=== PATIENT | male | born 1990 | race Caucasian/White ===

== ENCOUNTER 2017-05-18 14:03 | Emergency (ER) | payer OTHER ==
[~2017-05-18] VITALS: Ht 182.9 cm; Wt 118.0 kg
[2017-05-18 14:10] VITALS: BP 156/118
== END 2017-05-18 15:33 | disposition home or self-care (01) ==
LOC: ER 14:04
DX: S92.324A Nondisplaced fracture of second metatarsal bone, right foot, initial encounter for closed fracture (principal); W17.89XA Other fall from one level to another, initial encounter; Y93.39 Activity, other involving climbing, rappelling and jumping off; Y92.89 Other specified places as the place of occurrence of the external cause; Y99.8 Other external cause status
CPT/HCPCS: 29515; 73630; 99284

== ENCOUNTER 2022-02-18 22:48 | Emergency (ER) | payer MEDICAID ==
[~2022-02-18] VITALS: Ht 182.9 cm; Wt 100.0 kg
--- NOTE | 2022-02-18 23:44 | NUR ---
1 no answer in lobby
[2022-02-19] MEDS ORDERED: sulfamethoxazole/trimethoprim DS (800/160mg) tablet PO ONE (00:50)
[2022-02-19] MEDS ORDERED: SULF1TAB49 PO ×2 (00:50→15:50)
[2022-02-19 01:37] VITALS: BP 122/88
--- NOTE | 2022-02-21 10:18 | NUR ---
Called regarding positive culture for MRSA in great toe wound, need to await final sensitivity report. Patient is currently on bactrim at which staph aureus is sensitive to that.
== END 2022-02-19 01:41 | disposition home or self-care (01) ==
LOC: ER 22:48
DX: L97.519 Non-pressure chronic ulcer of other part of right foot with unspecified severity (principal); L03.115 Cellulitis of right lower limb; Z72.89 Other problems related to lifestyle; Z79.2 Long term (current) use of antibiotics; Z79.899 Other long term (current) drug therapy
CPT/HCPCS: 87070; 87077; 87186; 99285; A6222

== ENCOUNTER 2022-03-12 00:42 | Emergency (ER) | payer MEDICAID ==
[~2022-03-12] VITALS: Ht 182.9 cm; Wt 100.0 kg
[2022-03-12 03:19] LABS: BASOPHILS # (AUTO) 0.1 X10'3 (0-0.2); BASOPHILS % (AUTO) 1.2 % (0-1); EOSINOPHILS # (AUTO) 0.1 X10'3 (0-0.9); EOSINOPHILS % (AUTO) 1.9 % (0-6); HEMATOCRIT 41.2 % (42.0-52.0); HEMOGLOBIN 13.4 g/dl (14.0-17.9); LYMPHOCYTES % (AUTO) 46.5 % (21-51); MEAN CORPUSCULAR HEMOGLOBIN 28.3 PG (27.0-31.0); MEAN CORPUSCULAR HGB CONC 32.5 g/dL (33.0-36.5); MEAN CORPUSCULAR VOLUME 86.9 FL (78-98); MEAN PLATELET VOLUME 7.5 FL (7.4-10.4); MONOCYTES # (AUTO) 0.8 X10'3 (0-0.9); MONOCYTES % (AUTO) 12.9 % (2-12); NEUTROPHILS # (AUTO) 2.4 X10'3 (1.8-7.7); NEUTROPHILS % (AUTO) 37.5 % (42-75); PLATELET COUNT 282 X10'3 (140-440); RED BLOOD COUNT 4.74 X10'6 (4.70-6.10); RED CELL DISTRIBUTION WIDTH 14.1 % (11.5-14.5); WHITE BLOOD COUNT 6.3 X10'3 (4.5-11.0)
[2022-03-12 03:32] LABS: ALANINE AMINOTRANSFERASE 24 U/L (12-78); ALBUMIN/GLOBULIN RATIO 0.8 (1.1-1.5); ALKALINE PHOSPHATASE 64 IU/L (46-116); ANION GAP 5 (8-16); ASPARTATE AMINO TRANSFERASE 18 U/L (10-37); BILIRUBIN,TOTAL 0.2 MG/DL (0.1-1.0); BLOOD UREA NITROGEN 8 MG/DL (7-18); BUN/CREATININE RATIO 11.8 (5.4-32.0); CALCIUM 8.9 MG/DL (8.5-10.1); CHLORIDE 106 MMOL/L (99-107); CREATININE 0.68 MG/DL (0.60-1.10); GLUCOSE 90 MG/DL (70-104); POTASSIUM 4.1 MMOL/L (3.5-5.1); SODIUM 143 MMOL/L (135-145); TOTAL CARBON DIOXIDE 31.8 MMOL/L (24-32); TOTAL PROTEIN 6.6 G/DL (6.4-8.2); eGFR > 90 ML/MIN
[2022-03-12 03:38] LABS: LIPASE 58 U/L (73-393)
[2022-03-12 04:14] LABS: CLARITY,URINE CLEAR (Clear); COLOR,URINE YELLOW (Yellow); GLUCOSE, URINE NEGATIVE (Neg); KETONES,URINE TRACE mg/dl (Neg); LEUKOCYTE ESTERASE ,URINE NEGATIVE (Neg); NITRITES, URINE NEGATIVE (Neg); OCCULT BLOOD,URINE NEGATIVE (Neg); PROTEIN,URINE NEGATIVE (Neg); UROBILINOGEN,URINE 0.2 E.U/dL (0.2-1.0)
[2022-03-12 04:25] LABS: UA COLLECTION TYPE CLN CATCH MIDSTREAM
[2022-03-12 04:31] VITALS: BP 140/88
== END 2022-03-12 05:29 | disposition home or self-care (01) ==
LOC: ER 00:44
DX: R60.0 Localized edema (principal); F15.10 Other stimulant abuse, uncomplicated
CPT/HCPCS: 36415; 71045; 80053; 81003; 83690; 83880; 85025; 85610; 99284

== ENCOUNTER 2022-11-19 07:47 | Emergency (ER) | payer MEDICAID ==
[~2022-11-19] VITALS: Ht 185.4 cm; Wt 118.4 kg
[2022-11-19 07:49] VITALS: BP 144/93
[2022-11-19] MEDS ORDERED: ondansetron 4mg rapidly disintigrating tab PO ONE (08:35)
[2022-11-19] MEDS ORDERED: ketorolac trometh inj. 60 MG/2 ML VIAL IM ONE (08:35)
[2022-11-19] MEDS ORDERED: amoxicillin 250mg capsule PO ONE (08:35)
[2022-11-19] MEDS ORDERED: acetaminophen 325mg tablet PO ONE (08:35)
[2022-11-19] MEDS ORDERED: IBUP-1984 PO (08:38)
[2022-11-19] MEDS ORDERED: AMOX500C2 PO (08:38)
== END 2022-11-19 09:10 | disposition home or self-care (01) ==
LOC: ER 07:47
DX: K08.89 Other specified disorders of teeth and supporting structures (principal)
CPT/HCPCS: 96372; 99284; J1885

== ENCOUNTER 2024-10-27 14:49 | Emergency (ER) | payer MEDICAID ==
[~2024-10-27] VITALS: Ht 180.3 cm; Wt 130.0 kg
--- NOTE | 2024-10-27 16:47 | Physician Documentation ---
History of Present Illness ~ Chief Complaint: See Chief Complaint Stated Complaint: FEET SWELLING Time Seen by MD: 15:31 OK to notify your PCP?: Yes Primary Medical Doctor: None Source: patient Mode of Arrival: POV Exam Limitations: no limitations HPI 34-year-old male presents with bilateral feet swelling and lower extremity edema which occurred 2 days ago. He states that he has been on his feet a lot and has been busy moving and eating a high salt diet. He also mentions that he was wearing a different pair shoes that work on a tight around the ankle. He states that he has 0 pain when he is not standing or on his feet and that he has been sleeping in a chair with his feet not elevated recently. He also mentions having some brown discoloration to his bilateral lower extremities which has b een going on for the past 6 months. He is a patient of [facility] but has not followed up with them or established a relationship with a primary care provider. He has not had any time of immobilization, smoking, drugs, alcohol or clotting disorders that run in the family. He denies any chest pain, exercise intolerance or shortness of breath. Medication Reconciliation Allergies: Coded Allergies: No Known Allergies (Unverified , 11/19/22) Past Medical History Past Medical History: No Pertinent History Past Surgical History: no surgical history Smoking Status: Never smoker Alcohol Use: Heavy Drug Use: none Lives with: Family Lives In: Home Occupation: employed Review of Systems All Other Systems at this time: Reviewed and Negative Physical Exam Vital Signs: RN Vital Signs have been reviewed: Yes, Temperature: 98.2, Source: Oral, Heart Rate: 105, Respiratory Rate: 16, BP: 141/88, Pulse Oximetry: 100, Weight: 130.000 Oxygen Flow Rate: 0 Pulse Oximetry Reflects: adequate oxygenation General Appearance General: Alert, no distress. HEENT: No injection, moist mucous membranes. Neck: Full range of motion. Respiratory: No respiratory distress, equal chest rise and fall. Chest: No accessory muscle use. Cardiovascular: Regular rate and rhythm. Gastrointestinal: Nondistended. Extremities: Normal range of motion, no deformity. 2+ edema, nonpitting to bilateral ankles and feet. Tenderness to palpation of in her ankle area bilaterally. Good CSM, good pulses and good sensation in both feet. Neurologic: Oriented x4. Psychiatric: Normal mood and affect. Skin: Normal color, warm and dry. Brown discoloration of bilateral lower extremities. Progress Results/Orders Results/Orders Vital Signs 10/27/24 14:58 Temp 98.2 Pulse 105 Resp 16 B/P (MAP) 141/88 Pulse Ox 100 O2 Flow Rate 0 Medical Decision Making Findings 34-year-old male presents with bilateral lower extremity edema for the past 2 days and leg discoloration for 6 months. He admits to increased standing and sleeping in a chair without his feet elevated. He has no pain when when he is laying flat or while lying in the gurney with his legs elevated. We discussed that a high salt diet can cause water retention in his legs. Due to the bilateral leg discoloration this is suspicious for venous insufficiency for which he needs to follow up with his primary care provider for further investigation. He does not have any risk factors for a possible DVT in the fact that this is bilateral this is very unlikely. He has not had any chest pain, shortness of breath, exercise intolerance which would indicate CHF. He has not had any injuries to his legs which would need a X ray. We discussed he needs to go home and elevate his legs, eat a low-salt diet and when standing for periods of time try calf raises or pacing back and forth just for the calf muscle to help lessen the blood pooling in his legs. There is no signs of cellulitis on exam. We discussed wearing shoes that are not tight around the ankles and using compression socks. He agrees with this plan and can return back here for any new or worsening symptoms. Differential Dx:Considerations: Include: Cellulitis, Congestive heart failure, Deep venous thrombosis, Superfic thrombophlebitis, Venous insufficiency Departure Disposition: 01 HOME / SELF CARE / HOMELESS Impression: Primary Impression: Edema of lower extremity Condition: Stable Discharge Instructions: Edema, [id number] Additional Instructions: We discussed to go home and elevate his legs, eat a low-salt diet and when standing for periods of time try calf raises or pacing back and forth. So the calf muscles can help decrease blood pooling in legs. Please avoid wearing shoes that are too tight around the ankles and when standing for long periods of time please wear compression socks. He needs to establish care with a primary care provider within the next week and return back here for any new or worsening symptoms. Referrals: NO PRIMARY CARE PROVIDER (PCP) Education Educated: Patient Educated regarding: diagnosis, treatment, prognosis, need for follow up Signature Scribe Signature: . Attestation: Scribed for Riddhi Cifuentes Debridging Machine Operator by Riddhi Loya NP . 10/27/24 16:50 RIDDHI CIFUENTESP Oct 27, 2024 16:47
[2024-10-27 17:02] VITALS: BP 120/83; PULSE 82; RESP 14; TEMP 97.3; O2SAT 98
== END 2024-10-27 17:23 | disposition home or self-care (01) ==
LOC: ER 14:50
DX: R60.0 Localized edema (principal)
CPT/HCPCS: 99281; 99282

== ENCOUNTER 2025-02-08 19:53 | Emergency (ER) | payer MEDICAID ==
[~2025-02-08] VITALS: Ht 180.3 cm; Wt 120.0 kg
[2025-02-08 19:57] VITALS: BP 166/103; PULSE 111; RESP 18; TEMP 98.2; O2SAT 96
[2025-02-08] MEDS ORDERED: PENI500T2 PO (20:02)
--- NOTE | 2025-02-08 20:03 | Physician Documentation ---
History of Present Illness General Chief Complaint: Mouth Pain Stated Complaint: TOOTH PAIN Time Seen by MD: 20:01 Primary Medical Doctor: None History of Present Illness Initial Comments 34-year-old male presents to the emergency department for evaluation where he pleased to be a dental infection. Reports that he has a known molar that has decay. Symptoms have been worsening over the last 1-2 days. He has minimal pain at this time and there is no trismus. He has obvious mild facial swelling of the left. Medication Reconciliation Allergies: Coded Allergies: No Known Allergies (Unverified , 11/19/22) Scheduled Penicillin V Potassium* (Penicillin VK*), 500 MG PO Q6H Past Medical History Past Medical History: No Pertinent History Past Surgical History: no surgical history Smoking: Non-Smoker Alcohol Use: Heavy Drug Use: none Lives with: Family Lives In: Home Occupation: employed Review of Systems All Other Systems at this time: Reviewed and Negative Constitutional: Denies: fever, chills ENT Dental pain facial swollen Physical Exam Physical Exam Vital Signs: Temperature: 98.2, Source: Temporal, Heart Rate: 111, Respiratory Rate: 18, BP: 166/103, Pulse Oximetry: 96, Weight: 120.000 Oxygen Flow Rate: 0 General Appearance: alert, WD/WN, mild distress Head: normal inspection Face: other (Side facial swelling without fluctuance) Pupils/EOM/Fundus: PERRLA Nose: normal inspection Neck: non-tender Respiratory: lungs clear Chest: no accessory muscle use Cardiovascular: regular rate, rhythm Extremities: normal range of motion Neurologic: oriented x4 Motor / Sensory: no motor deficit, no sensory deficit Psychiatric: normal mood/affect Skin: normal color, warm/dry; No: rash Progress Results/Orders Results/Orders Completed Orders - SAIMA KOTHARI Penicillin V Potassium Tablet (Penicilli (02/08/25 20:05) Medications Received in ER Medications (Trade) Dose Ordered Sig/Jeff Route PRN Reason Start Time Stop Time Status Last Admin Dose Admin (penicillin V potassium tablet) 500 mg ONCE ONCE PO 02/08/25 20:05 02/08/25 20:06 DC 02/08/25 20:08 500 MG Vital Signs 02/08/25 19:57 Temp 98.2 Pulse 111 Resp 18 B/P (MAP) 166/103 Pulse Ox 96 O2 Flow Rate 0 Medical Decision Making Differential Diagnosis Examination history consistent with odontogenic infection with cellulitis without obvious periapical abscess or facial abscess. First dose penicillin provided for patient in the emergency department. Outpatient management to include penicillin q.i.d. for 10 days. He understands to follow up with the dentist for consideration of extraction. Discharged without trismus or clinical suspicion of Boubacar's angina Departure Disposition: HOME / SELF CARE / HOMELESS Impression: Primary Impression: Dental infection Additional Impression: Facial cellulitis Condition: Improved Additional Instructions: Begin antibiotic as directed for dental infection. Make follow up appointment with the dentist for consideration of extraction. Return to the emergency department with worse. Thank you for visiting [facility]. Referrals: NO PRIMARY CARE PROVIDER (PCP) Prescriptions Penicillin V Potassium* (Penicillin VK*) 500 Mg Tablet 500 MG PO Q6H for 10 Days, #40 TAB Prov: SAIMA KOTHARI 02/08/25 Education Educated: Patient Educated regarding: diagnosis, treatment Signature Scribe Signature: . Attestation: . SAIMA KOTHARI Feb 08, 2025 20:03
[2025-02-08] MEDS: penicillin V potassium 500mg tablet PO ONE (20:08)
== END 2025-02-08 20:11 | disposition home or self-care (01) ==
LOC: ER 19:53
DX: K04.7 Periapical abscess without sinus (principal); L03.211 Cellulitis of face; Z79.899 Other long term (current) drug therapy
CPT/HCPCS: 99283